=== PATIENT | male | born 1990 | race Two or more races ===

== ENCOUNTER 2017-06-07 11:50 | Emergency (ER) | payer OTHER ==
[~2017-06-07] VITALS: Ht 177.8 cm; Wt 86.2 kg
--- NOTE | 2017-06-07 13:07 | Diagnostic Imaging Report ---
Indication: Trauma to the head. Headache. Technique: Contiguous 5 mm thick transaxial imaging of the head obtained in a Siemens Sensation [address] scanner. Soft tissue and bone windows generated. Total Dose length Product (DLP): [address] Dose Index Volume (CTDIvol): 70.38, 0.15 mGy Comparison: none Findings: The size and configuration of the cortical sulci, basal cisterns, and ventricles are within normal limits for age. There is no mass effect, midline shift, or edema identified. There is no evidence of acute hemorrhage or abnormal intra-axial or extra-axial fluid collections. There is soft tissue swelling in the right parietal scalp with sutures noted. Impression: No mass effect, edema or acute bleed. Scalp laceration/contusion The CT scanner at [facility] is accredited by the [employer] and the scans are performed using dose optimization techniques as appropriate to a performed exam including Automatic Exposure control.
[2017-06-07 14:25] VITALS: BP 170/99
[2017-06-07] MEDS ORDERED: Tetanus/Diptheria/Pertussis Vaccine 0.5ml Syr IM ONE (14:30)
[2017-06-07] MEDS ORDERED: Cephalexin 500mg cap ORAL ONE (14:30)
[2017-06-07] MEDS ORDERED: IBUPROFEN600 MG ORAL (15:11)
[2017-06-07] MEDS ORDERED: CEPHALEXIN500 MG ORAL (15:11)
[2017-06-07 15:15] VITALS: BP 168/95
--- NOTE | 2017-06-07 22:03 | Emergency Room Report ---
History of Present Illness General Chief Complaint: Alcohol Intoxication Source: Patient, EMS Present Illness HPI The patient is a 26-year-old male brought in by EMS for alcohol intoxication. The patient provides limited information. He has solis in his head and bandages on both arms with some active bleeding. He states that he received this yesterday an unknown hospital after falling. He is unsure if any imaging was done. He denies any pain. He is unsure of last tetanus shot. He denies any other symptoms including nausea, vomiting, fever, chills, blurred vision, dizziness Allergies: Coded Allergies: No Known Allergies (Unverified , 06/07/17) Patient History Past Medical History: see triage record Pertinent Family History: none Reviewed Nursing Documentation: PMH: Agreed, PSxH: Agreed Nursing Documentation-PMH History Of Psychiatric Problem: Yes - Schizophrenia;Anxiety Review of Systems All Other Systems: negative except mentioned in HPI Physical Exam Vital Signs Date Time Temp Pulse Resp B/P (MAP) Pulse Ox O2 Delivery O2 Flow Rate FiO2 06/07/17 11:45 101.3 110 14 163/97 98 Room Air Sp02 EP Interpretation: reviewed, normal General Appearance: no apparent distress, alert, GCS 15, non-toxic Head: normocephalic, other - solis posterior scalp Eyes: bilateral eye normal inspection, bilateral eye PERRL ENT: hearing grossly normal, normal pharynx, no angioedema, normal voice Neck: full range of motion, supple/symm/no masses Musculoskeletal: normal range of motion, tender - TTP over bilat elbows Neurologic: alert, responsive, motor strength/tone normal, sensory intact, speech normal Psychiatric: memory normal, mood/affect normal, no suicidal/homicidal ideation Skin: normal color, no rash, warm/dry, well hydrated, laceration - posterior scalp with solis Medical Decision Making PA Attestation Dr. Li is my supervising physician. Patient management was discussed with my supervising physician Diagnostic Impression: Primary Impression: Elbow pain, right Additional Impressions: Scalp laceration Qualified Codes: S01.01XD - Laceration without foreign body of scalp, subsequent encounter Elbow pain, left ER Course The patient is a 26-year-old male presenting for alcohol intoxication, scalp laceration, and bilateral elbow pain Ddx considered include but not limited to sprain/strain, fracture, contusion, infection, concussion, ICH, among others PE: NAD Head is NC. No raccoon eyes or pereyra signs. There is a linear laceration over posterior scalp well approximated with solis There are bilateral abrasions to elbows with tenderness to palpation Full active range of motion CT scan of head shows no fracture or intracranial hemorrhage The patient refused x-rays of elbows. He has decided to leave AMA. he is alert and oriented at this time. He is given pain medication and Keflex and needs to follow up with primary doctor. ER precautions are given CT/MRI/US Diagnostic Results CT/MRI/US Diagnostic Results : Imaging Test Ordered: ct HEAD Impression No fracture. No ICH. Last Vital Signs Date Time Temp Pulse Resp B/P (MAP) Pulse Ox O2 Delivery O2 Flow Rate FiO2 06/07/17 15:15 100.0 88 17 168/95 99 Room Air Status: improved Disposition: AGAINST MEDICAL ADVICE Condition: Stable Scripts Cephalexin* (KEFLEX*) 500 Mg Capsule 500 MG ORAL EVERY 12 HOURS, #14 CAP 0 Refills Prov: NICK SIMON 06/07/17 Ibuprofen* (MOTRIN*) 600 Mg Tablet 600 MG ORAL Q8H Y for For Pain, #30 TAB 0 Refills Prov: NICK SIMON 06/07/17 Additional Instructions: The patient has chosen to leave AGAINST MEDICAL ADVICE. He is our interventions and understands the risks associated with this. Please follow up with her primary doctor soon as possible or return to emergency Department if you change your mind. NICK SIMON Jun 07, 2017 22:03
== END 2017-06-07 17:51 | disposition left against medical advice (07) ==
LOC: EDBD 11:50 → EMR 12:40
DX: M25.521 Pain in right elbow (principal); M25.522 Pain in left elbow; S01.01XA Laceration without foreign body of scalp, initial encounter; W19.XXXA Unspecified fall, initial encounter; Y92.89 Other specified places as the place of occurrence of the external cause; Z23 Encounter for immunization; F10.129 Alcohol abuse with intoxication, unspecified; F20.9 Schizophrenia, unspecified; F41.9 Anxiety disorder, unspecified
CPT/HCPCS: 70450; 90471; 90715; 99284

== ENCOUNTER 2019-01-30 01:07 | Emergency (ER) | payer OTHER ==
[~2019-01-30] VITALS: Ht 170.2 cm; Wt 90.7 kg
[~2019-01-30 01:07] MED LIST: BENADRYL25 M3 PO; BUSPIRONE HCL5 M1 ORAL; CEPHALEXIN500 MG ORAL; IBUPROFEN600 MG ORAL; SEROQUEL50 MG ORAL; WELLBUTRIN SR150 M1 PO
--- NOTE | 2019-01-30 01:08 | NUR ---
ED Nurse Note: PATIENT brought in by [facility] and c/o OVERDOSE ON COCAINE. Pt is AO x 2 times, confused and delay the conversation, VSS, on room air no distress. BERNARDOD seen Pt at bedside.
[2019-01-30 01:35] VITALS: BP 124/72
--- NOTE | 2019-01-30 02:54 | Emergency Room Report ---
History of Present Illness General Chief Complaint: Overdose Source: Patient, EMS Present Illness HPI Is a 28-year-old male brought in by EMS for drug overdose. He was lying on the ground and refuse to get up. He had altered mental status with slurring of his speech. He admitted to using cocaine tonight. Also with alcohol. No trauma. No suicidal thought homicidal thought. No other complaint. Allergies: Coded Allergies: No Known Allergies (Unverified , 06/07/17) Patient History Past Medical History: see triage record, old chart reviewed Past Surgical History: none Pertinent Family History: none Social History: Reports: alcohol use, drug use Immunizations: other Reviewed Nursing Documentation: PMH: Agreed; PSxH: Agreed Review of Systems Eye: Denies: eye pain, blurred vision ENT: Denies: ear pain, nose congestion, throat swelling Respiratory: Denies: cough, shortness of breath Cardiovascular: Denies: chest pain, palpitations Gastrointestinal: Denies: abdominal pain, diarrhea, nausea, vomiting Musculoskeletal: Denies: back pain, joint pain Skin: Denies: rash Neurological: Denies: headache, numbness Endocrine: Denies: increased thirst, increased urine Hematologic/Lymphatic: Denies: easy bruising All Other Systems: negative except mentioned in HPI Physical Exam Vital Signs Date Time Temp Pulse Resp B/P (MAP) Pulse Ox O2 Delivery O2 Flow Rate FiO2 01/30/19 00:58 98.4 104 17 124/72 (89) 96 Room Air vitals normal Sp02 EP Interpretation: reviewed, normal General Appearance: well appearing, no apparent distress, alert, other - Intoxicated Head: normocephalic, atraumatic Eyes: bilateral eye PERRL, bilateral eye EOMI ENT: hearing grossly normal, normal pharynx Neck: full range of motion, supple, no meningismus Respiratory: chest non-tender, lungs clear, normal breath sounds Cardiovascular #1: regular rate, rhythm, no murmur Gastrointestinal: normal bowel sounds, non tender, no mass, no organomegaly, no bruit, non-distended Musculoskeletal: back normal, gait/station normal, normal range of motion Psychiatric: mood/affect normal Skin: warm/dry Medical Decision Making Diagnostic Impression: Primary Impression: Cocaine abuse Additional Impression: Alcohol intoxication Qualified Codes: F10.920 - Alcohol use, unspecified with intoxication, uncomplicated ER Course patient presents with altered mental status secondary to alcohol intoxication and okayed abuse. No trauma to warrant CT scan or x-ray. Patient sleeping comfortably. Will reassess in the morning and discharge as needed. Patient slept overnight. Now is awake. Denies suicidal thoughts homicidal thought. Doesn't want to go to shelters. Said he wanted to leave. We'll discharge. This patient is a chronic risk of self injury due to poor impulse control, limited coping skills, and judgment intermittently impaired by intoxication. I believe that the available clinical evidence to suggest that these characteristics derived primarily from personality disorder and are likely very stable over time. Hospitalization would likely attenuate risk of self-harm only during detention period, without lasting risk reduction. Serious self-harm , while possible, would likely be inadvertent, and because of impulsivity, and foreseeable. For these reasons, I do not believe hospitalization would provide meaningful reduction in risk of self-harm. Last Vital Signs Date Time Temp Pulse Resp B/P (MAP) Pulse Ox O2 Delivery O2 Flow Rate FiO2 01/30/19 01:35 98.5 110 20 124/72 96 Room Air Status: improved Disposition: HOME, SELF-CARE Condition: Stable Additional Instructions: Abstain from drugs and alcohol. Follow-up with mental health and rehabilitation in a week. Return if worse. Faustino Reynaga MD January 30, 2019 02:54
[2019-01-30 04:30] VITALS: BP 117/72
[2019-01-30 05:43] VITALS: BP 124/84
--- NOTE | 2019-01-30 05:44 | NUR ---
Homeless Discharge: Patient is being discharged from medical care. Awake, alert and oriented x3. After care instructions, including referral to community resources were given. Patient verbalized understanding of After care instructions; at this time patient does not request medications, equipment or placement. Patient signed patient consent in the medical record for patient destination upon discharge. All medical devices ID band were removed. Patient ambulated out with all personal belongings with steady gait.
[2019-01-30 05:45] VITALS: BP 124/84
== END 2019-01-30 05:47 | disposition home or self-care (01) ==
LOC: EDBD 01:07 → EMR 01:41
DX: F14.10 Cocaine abuse, uncomplicated (principal); F10.929 Alcohol use, unspecified with intoxication, unspecified
CPT/HCPCS: 99282